=== PATIENT | male | born 1965 | race Caucasian/White ===

== ENCOUNTER 2024-07-13 10:30 | Outpatient (RCR) | payer MEDICAID, SELFPAY ==
--- NOTE | 2024-06-30 10:42 | PT.OIERPT ---
PT OP Initial Eval Patient Information Outpatient Physical Therapy Treatment Date: 06/30/24 Visit Reasons: right ankle pain Medical Diagnosis: M25.571 Treatment Dx #1: R ankle pain Start of Care: 06/30/24 Date of Onset: 2019 Smoking Status Smoking Status: Never smoker Initial Assessment Subjective: Pt is 59 yr old male who reports B ankle pain that is sharp and feels like it twisted my ankle and he has to sit to rest. He points posterior to the lateral malleolus as site of pain. He feels limited to about 1/4 to 1/2 a mile with walking. PMH: HTN, long covid, hypochondriac Pt goal: to walk 1 mile, jog Objective: R ankle AROM: DF: 12 deg ?Plantarflexion: full Inv/Eversion: full with pain with resisted eversion Strength: Ankle DF 4+/5, PF: 4+/5 Heel raise x3 to full height TTP: moderate of peroneus tendons Observation: high arches B Assessment: Pt presentation consistent with peroneal tendinopathy likely secondary to high arches and ambulating with more weight on the lateral borders of feet. Pt requires skilled therapy to meet goals and has fair rehab potential. Short Term and Tank Processor Goals 1. Ind with HEP 2. Decreased TTP of peroneal tendons from mod to none 3. Pt will ambulate 1 mile with <=2/10 foot pain Treatment Plan 1. Manual therapy ? 2. Therex ? 3. Modalities as indicated, moist heat, ice, TENS Frequency and Duration: 2x a week for 36 visits Certification Dates: 06/30/24 to 09/27/24 Procedure Charges OP PT Eval Mod Complex 30 minutes: Yes
--- NOTE | 2024-07-11 18:44 | PT.ODAYNRPT ---
PT Outpatient Daily Note OP Daily Note Outpatient Physical Therapy Treatment Date: 07/11/24 Visit Reasons: right ankle pain Subjective: Same as time of evaluation Objective: See f/S for therex MT: ST Caba R ankle/foot x7' Assessment: Min/mod TTP of R foot x7' Plan: Continue per POC Length of Time (minutes) of Treatment: 30 Minutes Procedure Charges Therapeutic Exercise 30 minutes: Yes
--- NOTE | 2024-07-13 11:24 | PT.ODAYNRPT ---
PT Outpatient Daily Note OP Daily Note Outpatient Physical Therapy Treatment Date: 07/13/24 Visit Reasons: right ankle pain Subjective: More fatigue today attributed to long covid Objective: see F/S for therex Assessment: More fatigue limited therex tolerance today Plan: Continue per POC Length of Time (minutes) of Treatment: 30 Minutes Procedure Charges Therapeutic Exercise 30 minutes: Yes
== END 2024-07-13 23:59 | disposition home or self-care (01) ==
LOC: CPTX 10:30
PROVIDERS: PCP Student in an Organized Health Care Education/Training Program; Referring Provider Student in an Organized Health Care Education/Training Program; Visit Provider Student in an Organized Health Care Education/Training Program
DX: M25.571 Pain in right ankle and joints of right foot (principal); I10 Essential (primary) hypertension
CPT/HCPCS: 97110; 97162

== ENCOUNTER → 2024-07-21 | Outpatient (BNVA) | payer MEDICAID, SELFPAY | END | disposition home or self-care (01) | PROVIDERS: PCP Student in an Organized Health Care Education/Training Program; Referring Provider Student in an Organized Health Care Education/Training Program; Visit Provider Urology | DX: N40.1 Benign prostatic hyperplasia with lower urinary tract symptoms (principal); N13.8 Other obstructive and reflux uropathy; R33.8 Other retention of urine; I10 Essential (primary) hypertension; E66.9 Obesity, unspecified; Z68.35 Body mass index [BMI] 35.0-35.9, adult; Z86.16 Personal history of COVID-19; E78.00 Pure hypercholesterolemia, unspecified; K21.9 Gastro-esophageal reflux disease without esophagitis | CPT/HCPCS: 81003; 99203; G0463 ==

== ENCOUNTER 2024-07-28 11:00 | Outpatient (RCR) | payer MEDICAID, SELFPAY ==
--- NOTE | 2024-07-19 10:50 | PT.ODAYNRPT ---
PT Outpatient Daily Note OP Daily Note Outpatient Physical Therapy Treatment Date: 07/19/24 Visit Reasons: RT ankle pain Subjective: Pt reports ankles are the same, continues to have pain and weakness. Objective: Please see flow sheet for ther ex list. Assessment: Added ankle 4 way exercise, pt performed with muscle fatigue. Plan: Continue with pOC. Length of Time (minutes) of Treatment: 30 Minutes Procedure Charges Therapeutic Exercise 30 minutes: Yes
--- NOTE | 2024-07-22 14:03 | PT.ODAYNRPT ---
PT Outpatient Daily Note OP Daily Note Outpatient Physical Therapy Treatment Date: 07/22/24 Visit Reasons: RT ankle pain Subjective: Pt reports R ankle is ok still has pain. Objective: Please see flow sheet for ther ex list. Assessment: Interventions progressed, pt c/o muscle fatigue and minimal pain. Plan: Continue with POc. Length of Time (minutes) of Treatment: 30 Minutes Procedure Charges Therapeutic Exercise 30 minutes: Yes
--- NOTE | 2024-07-26 11:57 | PT.ODAYNRPT ---
PT Outpatient Daily Note OP Daily Note Outpatient Physical Therapy Treatment Date: 07/26/24 Visit Reasons: RT ankle pain Subjective: Pt arrived 15 minutes late to appt today. Says R ankle is doing better. Objective: See F/S for therex Assessment: The R ankle shakes in single leg stance Plan: Continue per POC Length of Time (minutes) of Treatment: 20 Minutes Procedure Charges Therapeutic Exercise 15 minutes: Yes
--- NOTE | 2024-07-28 18:24 | PT.ODAYNRPT ---
PT Outpatient Daily Note OP Daily Note Outpatient Physical Therapy Treatment Date: 07/28/24 Visit Reasons: RT ankle pain Subjective: Says R ankle is doing better. Objective: See F/S for therex Assessment: The R ankle shakes in single leg stance and on uneven surfaces Plan: Continue per POC Length of Time (minutes) of Treatment: 20 Minutes Procedure Charges Therapeutic Exercise 15 minutes: Yes
== END 2024-08-13 23:59 | disposition home or self-care (01) ==
LOC: CPTX 11:00
PROVIDERS: PCP Student in an Organized Health Care Education/Training Program; Referring Provider Student in an Organized Health Care Education/Training Program; Visit Provider Student in an Organized Health Care Education/Training Program
DX: M25.571 Pain in right ankle and joints of right foot (principal); I10 Essential (primary) hypertension
CPT/HCPCS: 97110

== ENCOUNTER → 2024-09-01 | Outpatient (BNVA) | payer MEDICAID, SELFPAY | END | disposition home or self-care (01) | PROVIDERS: PCP Student in an Organized Health Care Education/Training Program; Referring Provider Student in an Organized Health Care Education/Training Program; Visit Provider Urology | DX: N40.1 Benign prostatic hyperplasia with lower urinary tract symptoms (principal); R39.12 Poor urinary stream; I10 Essential (primary) hypertension; E78.00 Pure hypercholesterolemia, unspecified; K21.9 Gastro-esophageal reflux disease without esophagitis | CPT/HCPCS: 51741; 51798 ==

== ENCOUNTER → 2024-09-13 | Outpatient (BNVA) | payer MEDICAID, SELFPAY | END | disposition home or self-care (01) | PROVIDERS: PCP Student in an Organized Health Care Education/Training Program; Referring Provider Student in an Organized Health Care Education/Training Program; Visit Provider Urology | DX: N40.1 Benign prostatic hyperplasia with lower urinary tract symptoms (principal); N13.8 Other obstructive and reflux uropathy; I10 Essential (primary) hypertension; E78.00 Pure hypercholesterolemia, unspecified; K21.9 Gastro-esophageal reflux disease without esophagitis | CPT/HCPCS: 76872 ==

== ENCOUNTER → 2024-10-03 | Outpatient (BNVA) | payer MEDICAID, SELFPAY | END | disposition home or self-care (01) | PROVIDERS: PCP Student in an Organized Health Care Education/Training Program; Referring Provider Student in an Organized Health Care Education/Training Program; Visit Provider Urology | DX: N32.89 Other specified disorders of bladder (principal); N40.1 Benign prostatic hyperplasia with lower urinary tract symptoms; N13.8 Other obstructive and reflux uropathy; I10 Essential (primary) hypertension; E78.00 Pure hypercholesterolemia, unspecified; G47.30 Sleep apnea, unspecified; K21.9 Gastro-esophageal reflux disease without esophagitis | CPT/HCPCS: 52000; 81003; A4217; A4649; C1894; J3260; A9270 ==

== ENCOUNTER 2025-01-22 15:17 | Emergency (ER) | payer MEDICAID, SELFPAY ==
[2025-01-22 15:22] VITALS: BP 159/89; PULSE 61; RESP 18; TEMP 36.8; O2SAT 96
[2025-01-22 15:30] VITALS: BMI 35.4
--- NOTE | 2025-01-22 15:30 | XR_ITS ---
Examination: CT brain head without contrast. 2-D sagittal coronal reconstructions Date and time of exam: January 22, 2025, 1805 hours, comparison August 08, 2009 INDICATIONS: Onset diplopia 1.5 hours ago blurred vision dizziness today CTDI: vol (mGy): 57.8 DLP: (mGycm): 1165 Technique: Multiple CT axial sections of the brain have been obtained, 5 mm slice thickness. Contrast has not been administered. 2-D sagittal, coronal reconstructions have been obtained Low dose protocols were performed. One or more of the following dose reduction techniques were used; automated exposure control, adjustment of the mA and/or KV according to patient size, use of iterative reconstruction technique. Findings: No significant ventricular enlargement. Intra-axial or extra-axial hemorrhage density is not seen. No mass effect or midline shift Basal cisterns are not remarkable. Fourth ventricle is midline. Cranial vault intact. Impression: Negative for acute hemorrhage, mass effect or midline shift As clinically warranted, consider brain MRI follow-up, stroke protocol
--- NOTE | 2025-01-22 15:30 | XR_ITS ---
Examination: CTA carotids with intravenous contrast CTA brain, head with intravenous contrast. 2-D sagittal, coronal reconstructions. 3-D reconstructions. Exam date and time: January 22, 2025, 1810 hours INDICATIONS: Blurred vision and dizziness today CTDI: vol (mGy) 11.9 DLP: (mGycm) 483 Technique: Multiple CTA axial brain, head carotid images post intravenous contrast injection 100 cc Isovue-370 cc, Isovue-370. 2-D sagittal, coronal reconstructions. 3-D reconstructions, 3-D post processing including vascular maximum intensity projection images. Low dose protocols were performed. One or more of the following dose reduction techniques were used; automated exposure control, adjustment of the mA and/or KV according to patient size, use of iterative reconstruction technique. Findings: No significant, carotid carotid bifurcation or internal carotid artery stenoses Dominant left vertebral artery in the neck with no critical stenoses Intracranial vertebral arteries basilar artery posterior cerebral branches fill with no large vessel occlusions Petrous juxtasellar supraclinoid internal carotid arteries intact No large vessel occlusions involving M1 segments middle cerebral arteries middle cerebral artery trifurcation vessels or anterior cerebral arteries IMPRESSION: No significant neck arterial stenoses No cerebral large vessel arterial occlusions or thrombus As clinically warranted, brain MRI follow-up, stroke protocol, would best assess for demyelinating disease, acute ischemic change
--- NOTE | 2025-01-22 15:31 | EKG_ITS ---
[facility] Test Date: 2025-01-22 Pat Name: DIPTI GOODSON Department: Room: - Gender: Male Dictaphone Technician: : 1965 Requested By: Adrian Caba Order Number: [id number] Reading MD: Adrian Caba Measurements Intervals [place] Rate: 63 P: 31 GA: 154 QRS: 35 QRSD: 102 T: 39 QT: 388 QTc: 398 Interpretive Statements SINUS RHYTHM INCOMPLETE RIGHT BUNDLE BRANCH BLOCK [90+ ms QRS DURATION, TERMINAL R IN V1/V2, 40+ ms S IN I/aVL/V4/V5/V6] Compared to ECG 11/06/2023 18:02:36 No significant changes /store/S0/[id number].pdf
--- NOTE | 2025-01-22 15:34 | PD.EDADULT ---
ED General RME/HPI General Chief complaint: Altered Mental Status Stated complaint: HEADACHE/DIZZYNESS Time Seen by Provider: 01/22/25 15:30 Arrival date/time: 01/22/25 15:17 CC: Diplopia HPI patient approximately 1.5 hours ago while driving, had distant double vision with slow accommodation. Patient denies any other symptoms included field cuts loss of vision nausea has a mild posterior headache, no chest pain shortness of breath no history of similar episodes. Related Data Home Medications ?Medication ?Instructions ?Recorded ?Confirmed omeprazole 40 mg capsule,delayed 40 mg PO QDAY 12/10/17 09/13/24 release atogepant 60 mg tablet (Qulipta) 60 mg PO QDAY 11/25/23 09/13/24 losartan 50 mg tablet 50 mg PO QDAY 11/25/23 09/13/24 tamsulosin 0.4 mg capsule 0.4 mg PO BID 11/25/23 09/13/24 ubrogepant 100 mg tablet (Ubrelvy) 100 mg PO QDAY PRN 07/21/24 09/13/24 Allergies Allergy/AdvReac Type Severity Reaction Status Date / Time Goats Milk Allergy Severe Gastrointestinal Uncoded 09/13/24 14:39 Upset Review of Systems Review of Systems Narrative Review of Systems: GEN: No fever, no chills, no weight loss EYES: No discharge, no visual changes, no pain HEENT: No ear pain, no congestion, no sore throat, +diplopia PULM: No shortness of breath, no cough, no congestion CV: No chest pain, no dyspnea on exertion, no palpitations GI: No nausea, no vomiting, no diarrhea, no pain, no constipation : No frequency, no urgency, no dysuria MUSC/SKEL: No joint pain, no back pain SKIN: No rash PSYCH: No hallucinations, no depression HEME/LYMPH: No easy bleeding or bruising tendencies NEURO: No weakness, no headache Past Medical History Past Medical History NEUROLOGIC: Positive Neurological Disorders, Meningitis and Migraine; Negative Seizures CARDIAC: Positive Cardiac Disorders, Hypercholesterolemia, Edema and Hypertension; Negative Congestive Heart Failure RESPIRATORY: Positive Asthma and Sleep Apnea; Negative Chronic Obstructive Pulmonary Disease (COPD) or Pneumonia GASTROINTESTINAL: Positive Gastrointestinal Disorders, Hiatal Hernia, Gastroesophageal Reflux Disease and Obesity GENITOURINARY: Positive Genitourinary Disorders and Benign Prostatic Hyperplasia; Negative Renal Disease MUSCULOSKELETAL: Positive Musculoskeletal Disorders and Fractures ENDOCRINE: Negative Endocrine Disorders, Diabetes Mellitus Type 1 or Diabetes Mellitus Type 2 HEMATOLOGIC: Negative Blood Disorders or Sickle Cell Disease PSYCHO/SOCIAL: Positive Bipolar Disorder, Depression and Anxiety OTHER HISTORY: Positive Chicken Pox and Mumps; Negative Blood Transfusions, Blood Transfusion Reaction, Anesthesia Reactions or Cancer Surgical History SURGICAL: Negative Cardiac Surgery Social History SMOKING STATUS: Never smoker ED Exam Narrative Physical exam: [General: Obese not in any acute distress Head normocephalic HEENT: Within acceptable limits Neck is supple nontender Chest equal chest rise nontender to palpation Respiratory: Clear to auscultation no wheezes crackles or rubs CV: Rate rhythm is regular no murmurs rubs or clicks Abdomen is distended secondary to body habitus soft nontender no masses positive bowel sounds all 4 quadrants Back: No CVA tenderness no spinous process tenderness from cervical spine thoracic and lumbar spine Skin: Intact no petechiae rash induration ulceration or crepitus Extremities: Moving all extremity against resistance cap refill less than 2 seconds neurosensory intact Neuro: Awake alert oriented x3 Glascow coma 15 no focal deficits] cranial nerves II through XII are grossly intact. Note with vision, approximately 8 feet from the face the patient had diplopia with slow accommodation. Course Quality Measures none Orders Category Date Time Status CT Screening NOW Care 01/22/25 15:32 Active EKG (ED ONLY) *Do not use* NOW Care 01/22/25 15:[address] angio carotid w head w Stat Exams 01/22/25 15:[address] head/brain wo con Stat Exams 01/22/25 15:30 Completed EKG (ED Only) Stat Exams 01/22/25 15:31 Draft B-Type Natriuretic Peptide Stat Lab 01/22/25 15:44 Completed CBC Stat Lab 01/22/25 15:44 Completed Comprehensive Metabolic Panel Stat Lab 01/22/25 15:44 Completed Drug Screen,Urine Stat Lab 01/22/25 17:53 Completed LDH (Lactate Dehydrogenase) Stat Lab 01/22/25 15:44 Completed Magnesium Stat Lab 01/22/25 15:44 Completed Partial Thromboplastin Time Stat Lab 01/22/25 15:44 Completed Prothrombin Time with INR Stat Lab 01/22/25 15:44 Completed Urinalysis, C/S if Indicated Stat Lab 01/22/25 17:53 Completed Vital Signs Vital signs: Vital Signs Temperature 98.3 F 11/09/25 15:22 Pulse Rate 61 01/22/25 15:22 Respiratory Rate 18 01/22/25 15:22 Blood Pressure 159/89 H 01/22/25 15:22 Pulse Oximetry (%) 96 01/22/25 15:22 Oxygen Delivery Method Room Air 01/22/25 15:22 Discharge Plan Plan Patient Disposition: HOME (Self Care) Patient condition on transfer: Stable Prescriptions/Referrals Prescriptions/Med Rec: No Action omeprazole 40 mg Capsule,Delayed Release(Dr/Ec) 40 mg PO QDAY losartan 50 mg tablet 50 mg PO QDAY Patient Comments: take 1 tablet by mouth once daily tamsulosin 0.4 mg capsule 0.4 mg PO BID Patient Comments: take 1 capsule by mouth twice a day Qulipta 60 mg tablet 60 mg PO QDAY Ubrelvy 100 mg tablet 100 mg PO QDAY PRN Patient Comments: take 1 tablet by mouth AT START OF MIGRAIN, MAY REPEAT DOSE IN 1 HOUR maximum daily dose of 4 Referrals: Gabriel Mallory FNP [Primary Care Provider] - In 1 week James Cantrell MD [Referring Provider, Opthalmology] - In 1 week Problem List Clinical Impression: Diplopia Patient/Caregiver Discharge Instructions Other Activity Instructions:: I suspect this is an accommodation issue with the muscles that manage your eyeballs please follow-up with the production service manager listed above for further evaluation. Education Materials: ED Double Vision (Diplopia) Print Language: Irish Stand Alone Forms: Kathie Award Info., Work/School Release, Patient Portal Info Letter JAKE/ALBERT Supervising Physician CLARA Supervising Physician: Adrian Rao ENP [facility] Clinical Information Provided by: patient Medical Records reviewed [facility] Meds/Rx considered, not ordered None Labs/Rad/Tests considered, not ordered None Labs Labs: interpreted by wy Lab(s) Interpretation(s): CBC shows no acute leukocytosis anemia thrombocytopenia CMP showed no significant electrolyte imbalances renal impairment transaminitis or T. bili elevation Coags within acceptable limits Urine is negative UDS is negative Imaging Imaging interpretation: interpreted by [facility] Imaging Interpretation(s): CTA head and neck and CT head are all negative for any acute finding such as LVO intracranial hemorrhage Medication Administration(s) none Diagnosis Differential Diagnosis ED Complaint MDM: CVA TIA diplopia
[2025-01-22 16:24] LABS: Basophils # (Auto) 0.1 Thou/mm3 (0.0-0.2); Basophils % (Auto) 1 % (0-2.5); Eosinophils # (Auto) 0.1 Thou/mm3 (0.0-0.5); Eosinophils % (Auto) 1 % (0-10); Hematocrit 43.2 % (41.0-53.0); Hemoglobin 14.2 g/dL (13.5-16.0); Immature Granulocytes Auto 0.01 Thou/mm3 (0.00-0.00); Lymphocytes # (Auto) 3.0 Thou/mm3 (1.0-4.8); Lymphocytes % (Auto) 33 % (10-50); Mean Corpuscular HGB Conc 32.9 g/dl (31.0-37.0); Mean Corpuscular Hemoglobin 27.5 pg (25.0-35.0); Mean Corpuscular Volume 84 fL (80-100); Monocytes # (Auto) 0.6 Thou/mm3 (0.0-0.8); Monocytes % (Auto) 7 % (0-12); Neutrophils # (Auto) 5.4 Thou/mm3 (1.8-7.7); Neutrophils % (Auto) 58 % (37-80); Nucleated Red Blood Cell # 0.00 Thou/mm3 (0.00-0.00); Nucleated Red Blood Cell % 0 /100 WBC (0); Platelet Count 244 Thou/mm3 (140-440); RDW Standard Deviation 41.1 fL (35.1-43.9); Red Blood Count 5.16 Miln/mm3 (4.50-5.90); White Blood Count 9.3 Thou/mm3 (3.8-10.6)
[2025-01-22 16:35] LABS: INR 1.0 (0.9-1.3); Partial Thromboplastin Time 28.7 Seconds (22.0-36.0); Prothrombin Time 10.9 Seconds (9.0-12.2)
[2025-01-22 16:40] LABS: B-Type Natriuretic Peptide < 20 pg/mL (0-100)
[2025-01-22 16:42] LABS: Alanine Aminotransferase 24 U/L (10-49); Albumin, Serum 4.8 gm/dL (3.4-4.8); Albumin/Globulin Ratio 2.3 (1.2-2.2); Alkaline Phosphatase 66 U/L (46-116); Anion Gap 6 (7-16); Aspartate Amino Transferase 25 U/L (0-34); BUN/Creatinine Ratio 11 Ratio (12-20); Bilirubin,Total 0.5 mg/dL (0.3-1.2); Blood Urea Nitrogen 13 mg/dL (9-23); Calcium 9.5 mg/dL (8.3-10.6); Calcium (Corrected) 9.5 mg/dL (8.5-10.1); Carbon Dioxide 29.9 mMol/L (20.0-31.0); Chloride 106 mMol/L (98-107); Creatinine (Component) 1.2 mg/dL (0.6-1.3); Estimated Creatinine Clearance 76.2 mL/min (>60); Globulin 2.1 gm/dL (2.3-3.5); Glucose 90 mg/dL (74-106); LDH (Lactate Dehydrogenase) 209 U/L (120-246); Magnesium 2.2 mg/dL (1.6-2.6); Osmolality,Calculated 283 (275-295); Potassium 4.0 mMol/L (3.4-5.1); Sodium 142 mMol/L (136-145); Total Protein 6.9 gm/dL (5.7-8.2); eGFR > 60 See Note
[2025-01-22 18:02] VITALS: BP 144/90; PULSE 61; RESP 61; TEMP 36.7; O2SAT 98
[2025-01-22 18:19] LABS: Collection Type, Urine Clean Catch; Squamous Epithelial Cell,Urine 0 /hpf (0-5)
[2025-01-22 18:29] LABS: Bilirubin,Urine Negative (Negative); Blood,Urine Negative (Negative); Clarity,Urine Clear (Clear/Hazy); Color,Urine Lt-Yellow (Lt Yel-Yel); Culture Indicated,Urine Not Indicated; Glucose, Urine Negative (Negative); Ketones,Urine Negative (Negative); Leukocyte Esterase,Urine Negative (Negative); Nitrite,Urine Negative (Negative); PH,Urine 6.0 (5.0-7.0); Protein,Urine Negative (Neg - Trace); RBC,Urine < 1 /hpf (0-3); Specific Gravity,Urine 1.015 (1.001-1.035); Urobilinogen,Urine Negative mg/dL (0.0-1.0); WBC,Urine 1 /hpf (0-5)
[2025-01-22 18:33] LABS: Amphetamine/Methamp Scrn,U Negative (Negative); Barbiturate Screen,Urine Negative (Negative); Benzodiazepines Screen,Urine Negative (Negative); Benzoylecgonine Screen, Ur Negative (Negative); Fentanyl Screen,Urine Negative (Negative); Opiate Screen,Urine Negative (Negative); THC Screen,Urine Negative (Negative)
== END 2025-01-22 20:52 | disposition home or self-care (01) ==
PROVIDERS: Registered Nurse General Practice; Emergency Provider Emergency Medicine
DX: H53.2 Diplopia (principal)
CPT/HCPCS: 36415; 70450; 70496; 70498; 80053; 80307; 81001; 83615; 83735; 83880; 85025; 85610; 85730; 99283; A4649; Q9967